=== PATIENT | female | born 1995 | race Caucasian/White ===

== ENCOUNTER 2024-05-22 00:37 | Inpatient (IN) | payer SELFPAY ==
[~2024-05-22] VITALS: Ht 167.6 cm; Wt 79.4 kg
[2024-05-22] MEDS ORDERED: NALOXONE HCL INJ 0.4 MG/ML AMP IV ONE (00:45)
[2024-05-22] MEDS ORDERED: NALOXONE HCL 2MG/2 ML SYRINGE ONE (01:11)
[2024-05-22 01:19] VITALS: TEMP 98
[2024-05-22] MEDS: ONDANSETRON HCL INJ 2MG/ML 2ML 2 MG/ML VIAL IV STA (01:32)
[2024-05-22] MEDS: SODIUM CHLORIDE 0.9% 1000ML 1,000 ML IV ONE (01:33)
[2024-05-22] MEDS: NALOXONE HCL INJ 0.4 MG/ML AMP IV ONE (01:35)
[2024-05-22] MEDS: DEXTROSE 5%/0.9% SOD CHL 1,000 ML IV ONE (01:36)
[2024-05-22] MEDS ORDERED: ONDANSETRON HCL INJ 2MG/ML 2ML 2 MG/ML VIAL IV PRN (02:15)
[2024-05-22] MEDS ORDERED: SODIUM CHLORIDE 0.9% 1000ML 1,000 ML IV SCH (02:15)
[2024-05-22 02:26] LABS: ETHANOL 206.9 mg/dL (0.0-10.0)
[2024-05-22 02:27] LABS: ACETAMINOPHEN < 3.0 ug/mL (10-30); SALICYLATE < 5.0 mg/dL (0-30)
[2024-05-22 02:42] LABS: TROPONIN I < 0.001 ng/mL (0-0.300)
[2024-05-22 02:49] LABS: CREATINE KINASE 40 IU/L (29-168)
[2024-05-22 02:54] LABS: BASOPHILS # (AUTO) 0.1 (0.0-0.1); BASOPHILS % 0.6 % (0.0-1.0); EOSINOPHILS # (AUTO) 0.1 (0.0-0.4); EOSINOPHILS % 0.9 % (0.0-6.0); HEMATOCRIT 37.7 % (34.2-44.1); LYMPHOCYTES # (AUTO) 2.3 (1.0-3.2); MEAN CORPUSCULAR HEMOGLOBIN 30.6 pg (28-32); MEAN CORPUSCULAR HGB CONC 34.5 g/dL (31-35); MEAN CORPUSCULAR VOLUME 88.7 fL (81-99); MONOCYTES # (AUTO) 0.4 (0.2-0.8); MONOCYTES % 5.1 % (4.4-11.3); NEUTROPHILS # (AUTO) 5.7 (2.1-6.9); NEUTROPHILS % 66.2 % (38.7-80.0); PLATELET COUNT 241 x10e3/uL (140-360); RED BLOOD COUNT 4.25 x10e6/uL (3.6-5.1); RED CELL DISTRIBUTION WIDTH 12.4 % (11.7-14.4); WHITE BLOOD COUNT 8.63 x10e3/uL (4.8-10.8)
[2024-05-22 03:05] VITALS: PULSE 96; RESP 18
[2024-05-22 03:05] LABS: ALBUMIN 4.3 g/dL (3.5-5.0); ALBUMIN/GLOBULIN RATIO 1.5 (0.8-2.0); ANION GAP 15.2 mmol/L (8-16); BILIRUBIN,TOTAL 0.3 mg/dL (0.2-1.2); CALCIUM 9.5 mg/dL (8.4-10.2); CREATININE, SERUM 0.91 mg/dL (0.57-1.11); TOTAL PROTEIN 7.2 g/dL (6.5-8.1)
[2024-05-22 03:06] LABS: POTASSIUM 3.2 mmol/L (3.5-5.1)
[2024-05-22] MEDS ORDERED: SODIUM CHLORIDE 0.9% 1000ML 1,000 ML IV ONE (03:15)
[2024-05-22 04:01] LABS: AMPHETAMINES SCREEN,URINE POSITIVE (NEGATIVE); BENZODIAZEPINES SCREEN,URINE NEGATIVE (NEGATIVE); OPIATES SCREEN,URINE NEGATIVE (NEGATIVE); PHENCYCLIDINE SCREEN,URINE NEGATIVE (NEGATIVE)
[2024-05-22 04:02] LABS: CANNABINOIDS SCREEN,URINE POSITIVE (NEGATIVE); METHADONE SCREEN, URINE NEGATIVE (NEGATIVE)
[2024-05-22 04:12] VITALS: BP 104/75; PULSE 95; RESP 17; TEMP 98.3; O2SAT 96
[2024-05-22] MEDS ORDERED: LIDOCAINE 4% PATCH TP PRN (17:45)
[2024-05-22] MEDS ORDERED: DOCUSATE SODIUM 100 MG CAP PO PRN (17:45)
[2024-05-22] MEDS ORDERED: ACETAMINOPHEN 325 MG TAB PO PRN (17:45)
[2024-05-22] MEDS ORDERED: DEXTROSE 50% SYRINGE 50 ML IV PRN (17:45)
[2024-05-22] MEDS ORDERED: SIMETHICONE 80 MG CHEW PO PRN (17:45)
[2024-05-22] MEDS ORDERED: ALBUTEROL/IPRATROPIUM 3 ML NEB NEB PRN (17:45)
[2024-05-22] MEDS ORDERED: BENZONATATE 100 MG CAP PO PRN (17:45)
[2024-05-22] MEDS ORDERED: POTASSIUM CHLORIDE 20 MEQ TAB CR PO PRN (17:45)
[2024-05-22] MEDS ORDERED: DIPHENHYDRAMINE HCL 25 MG CAP PO PRN (17:45)
[2024-05-22] MEDS ORDERED: MELATONIN 5 MG TABLET PO PRN (17:45)
[2024-05-22] MEDS ORDERED: HYDRALAZINE HCL 20 MG/ML VIAL IV PRN (17:45)
[2024-05-23] MEDS ORDERED: PANTOPRAZOLE SOD 40 MG TABEC PO SCH (07:30)
== END 2024-05-22 04:23 | disposition home or self-care (01) | DRG 897 ==
LOC: FSED 00:44 → ERHOLD 02:16
PROVIDERS: ADMIT Internal Medicine; ATTEND Internal Medicine
DX: F10.120 Alcohol abuse with intoxication, uncomplicated (principal); Y90.7 Blood alcohol level of 200-239 mg/100 ml; F12.90 Cannabis use, unspecified, uncomplicated; F15.90 Other stimulant use, unspecified, uncomplicated; I49.3 Ventricular premature depolarization; F32.A Depression, unspecified; Z79.899 Other long term (current) drug therapy
CPT/HCPCS: 36415; 70450; 71045; 72125; 80053; 80307; 80320; 80329; 82550; 82948; 84484; 85025; 99282; 99284; J2310; J7042